=== PATIENT | female | born 1995 | race Hispanic/Latino ===

== ENCOUNTER 2020-11-24 15:40 | Emergency (ER) | payer SELFPAY ==
[2020-11-24] MEDS ORDERED: LIDOCAINE 1% 20 ML MDV ONE (16:33)
[2020-11-24] MEDS ORDERED: TETANUS & DIPHTHERIA TOX,ADULT 0.5 ML VIAL ONE (16:33)
--- NOTE | 2020-11-24 16:49 | RAD REPORT ---
EXAM DESCRIPTION: RAD - Foot Left 3 View - 11/24/2020 4:26 pm CLINICAL HISTORY: fb Pain and swelling COMPARISON: No comparisons FINDINGS: A fishhook is seen in the soft tissues of the medial forefoot. No underlying fracture seen .
--- NOTE | 2020-11-24 16:56 | ER ---
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 Hook embedded in L foot, no active bleeding. Coronavirus screen: Client denies travel out of the [place] in the last 14 days. At this time, the client does not indicate any symptoms associated with coronavirus-19. Ebola Screen: Patient denies travel to an Ebola-affected area in the 21 days before illness onset. Initial Sepsis Screen: Does the patient meet any 2 criteria? No. Patient's initial sepsis screen is negative. Does the patient have a suspected source of infection? Yes: Skin breakdown/wound. Risk Assessment: Do you want to hurt yourself or someone else? Patient reports no desire to harm self or others. Onset of symptoms was November 24, 2020. 15:57 Method Of Arrival: Wheelchair ll1 15:57 Acuity: FRANCESCO 4 ll1 Triage Assessment: 16:30 General: Appears in no apparent distress. comfortable, Behavior is calm, cooperative. ae4 DIETARY DIRECTOR: 19:36 LMP 11/12/2020 ae4 Historical: - Allergies: 15:57 No Known Allergies; ll1 - PMHx: 15:57 None; ll1 - PSHx: 15:57 ACL repair; ll1 - Immunization history:: Client reports having NOT received the Covid vaccine. Last tetanus immunization: unknown, Flu vaccine is up to date. - Social history:: Smoking status: Patient denies any tobacco usage or history of. Screenin:36 Abuse screen: Denies threats or abuse. Nutritional screening: No deficits noted. ae4 Tuberculosis screening: No symptoms or risk factors identified. Fall Risk None identified. Assessment: 16:19 Reassessment: water technician at bedside. ae4 16:30 General: Appears in no apparent distress. comfortable, slender, Behavior is calm, ae4 cooperative. Pain: Complains of pain in ball of right foot. Neuro: Level of Consciousness is awake, alert, obeys commands, Oriented to person, place, time, situation, Appropriate for age. Cardiovascular: Patient's skin is warm and dry. Respiratory: Airway is patent Respiratory effort is even, unlabored, Respiratory pattern is regular, symmetrical. GI: No signs and/or symptoms were reported involving the gastrointestinal system. : No signs and/or symptoms were reported regarding the genitourinary system. EENT: No signs and/or symptoms were reported regarding the EENT system. Derm: Wound noted Other: fishing hook puncturing plantar surface of right foot. Musculoskeletal: No signs and/or symptoms reported regarding the musculoskeletal system. No swelling or bleeding noted. Vital Signs: 15:57 BP 109 / 81; Pulse 71; Resp 16; Temp 97.1; Pulse Ox 99% ; Weight 54.43 kg; Height 5 ft. ll1 0 in. (152.40 cm); Pain 2/10; 15:57 Body Mass Index 23.44 (54.43 kg, 152.40 cm) ll1 ED Course: 15:42 Patient arrived in ED. as 15:51 Laurie Aragon FNP-C is PHCP. kb 15:51 Lazarus Shahid MD is Attending Physician. kb 15:56 Arm band placed on Patient placed in an exam room, on a stretcher. ll1 15:59 Triage completed. ll1 16:10 Spencer Zimmerman, LIAD is Primary Nurse. ae4 16:26 Foot Left 3 View XRAY In Process Unspecified. EDMS 16:30 Placed in gown. Bed in low position. Call light in reach. Side rails up X 1. Pulse ox ae4 on. Warm blanket given. 19:37 No provider procedures requiring assistance completed. Patient did not have IV access ae4 during this emergency room visit. Administered Medications: 16:18 Drug: Tetanus-Diphtheria Toxoid Adult 0.5 ml {Industrial Locomotive Operator: [employer]. Exp: ae4 08/16/2022. Lot #: [id number]. } Route: IM; Site: right deltoid; 17:25 Follow up: Response: No adverse reaction ae4 16:45 Drug: Lidocaine (1 %) 1 vials {Note: Administered by Laurie Riley NP to affected area..} ae4 Volume: 20 ml; Route: Infiltration; 17:34 Drug: Doxycycline 100 mg Route: PO; ae4 17:38 Follow up: Response: Medication administered at discharge. ae4 Outcome: 16:55 Discharge ordered by . milagros 17:40 Patient left the ED. ae4 19:37 Discharged to home ambulatory, with family. ae4 19:37 Condition: stable 19:37 Discharge instructions given to patient, Instructed on discharge instructions, follow up and referral plans. Demonstrated understanding of instructions, follow-up care, Prescriptions given X 1. Signatures: Dispatcher [employer] EDLaurie Stark, STUDENT DRIVING INSTRUCTOR-C PAZ-Julee Mays Andrea, RN RN ae4 Nico Danielson, RN RN ll1
--- NOTE | 2020-11-24 16:56 | EDPHYS ---
Physician Documentation [facility] Name: Kimberly Lynch Age: 25 yrs Sex: Female : 1995 Arrival Date: 11/24/2020 Time: 15:42 Bed 24 Private MD: ED Physician Lazarus Shahid HPI: 11/24 16:52 This 25 yrs old Female presents to ER via Wheelchair with complaints of kb Foreign Body - fish hook in l foot. 16:52 The patient or guardian reports the patient has a suspected foreign body, of the medial kb aspect of left foot. The reported likely foreign body is a fishhook. Onset: The symptoms/episode began/occurred just prior to arrival. Current symptoms: foreign body sensation. Treatment Prior to Arrival: none. The patient has not experienced similar symptoms in the past. The patient has not recently seen a physician. Pt was swimming at the beach and swam into some fishing line, then felt the hook go into her foot. MILL HELPER: 19:36 LMP 11/12/2020 ae4 Historical: - Allergies: 15:57 No Known Allergies; ll1 - PMHx: 15:57 None; ll1 - PSHx: 15:57 ACL repair; ll1 - Immunization history:: Client reports having NOT received the Covid vaccine. Last tetanus immunization: unknown, Flu vaccine is up to date. - Social history:: Smoking status: Patient denies any tobacco usage or history of. ROS: 16:50 Constitutional: Negative for fever, chills, and weight loss, MS/Extremity: Negative for kb injury and deformity, Neuro: Negative for headache, weakness, numbness, tingling, and seizure. 16:50 Skin: Positive for puncture, of the medial aspect left foot. Exam: 16:50 Constitutional: This is a well developed, well nourished patient who is awake, alert, kb and in no acute distress. Head/Face: Normocephalic, atraumatic. ENT: Moist Mucous membranes Respiratory: Respirations even and unlabored. No increased work of breathing, no retractions or nasal flaring. MS/ Extremity: Pulses equal, no cyanosis. Neurovascular intact. Full, normal range of motion. Neuro: Awake and alert, GCS 15, oriented to person, place, time, and situation. Moves all extremities. Normal gait. Psych: Awake, alert, with orientation to person, place and time. Behavior, mood, and affect are within normal limits. 16:50 Skin: injury, puncture(s), that are superficial, of the medial aspect left foot. Vital Signs: 15:57 BP 109 / 81; Pulse 71; Resp 16; Temp 97.1; Pulse Ox 99% ; Weight 54.43 kg; Height 5 ft. ll1 0 in. (152.40 cm); Pain 2/10; 15:57 Body Mass Index 23.44 (54.43 kg, 152.40 cm) ll1 Procedures: 16:54 Foreign Body Removal: a fishhook, from the left medial aspect of left foot, by injected kb lidocaine and pulled out. Dressing: bandaid, The patient tolerated the removal well. MDM: 15:51 Patient medically screened. kb 16:52 Data reviewed: vital signs, nurses notes. Data interpreted: Pulse oximetry: on room air kb is 99 %. Interpretation: normal. Counseling: I had a detailed discussion with the patient and/or guardian regarding: the historical points, exam findings, and any diagnostic results supporting the discharge/admit diagnosis, radiology results, the need for outpatient follow up, a family practitioner, to return to the emergency department if symptoms worsen or persist or if there are any questions or concerns that arise at home. 11/24 15:57 Order name: Foot Left 3 View XRAY; Complete Time: 16:50 kb 11/24 16:49 Order name: Wound Care: clean and dress; Complete Time: 17:34 kb Administered Medications: 16:18 Drug: Tetanus-Diphtheria Toxoid Adult 0.5 ml {Pediatrics Hospitalist: [employer]. Exp: ae4 08/16/2022. Lot #: [id number]. } Route: IM; Site: right deltoid; 17:25 Follow up: Response: No adverse reaction ae4 16:45 Drug: Lidocaine (1 %) 1 vials {Note: Administered by Laurie Riley NP to affected area..} ae4 Volume: 20 ml; Route: Infiltration; 17:34 Drug: Doxycycline 100 mg Route: PO; ae4 17:38 Follow up: Response: Medication administered at discharge. ae4 Disposition: 18:10 Co-signature as Attending Physician, Lazarus Shahid MD. rn Disposition: 11/24/20 16:55 Discharged to Home. Impression: Puncture wound with foreign body of foot. - Condition is Stable. - Discharge Instructions: Puncture Wound, [id number]. - Prescriptions for Doxycycline Hyclate 100 mg Oral Tablet - take 1 tablet by ORAL route every 12 hours; 20 tablet. - Medication Reconciliation Form, Thank You Letter, Antibiotic Education, Prescription Opioid Use form. - Follow up: Emergency Department; When: As needed; Reason: Worsening of condition. Follow up: Private Physician; When: 2 - 3 days; Reason: Recheck today's complaints, Continuance of care, Re-evaluation by your physician. Signatures: Dispatcher [employer] EDMS Laurie Aragon, CAR DUMPER OPERATOR HELPER-C CAR DUMPER OPERATOR HELPER-Ckb Lazarus Shahid MD MD rn Elliott, Andrea RN RN ae4 Nico Danielson RN RN ll1 Corrections: (The following items were deleted from the chart) 17:40 16:55 11/24/2020 16:55 Discharged to Home. Impression: Puncture wound with foreign body ae4 of foot. Condition is Stable. Forms are Medication Reconciliation Form, Thank You Letter, Antibiotic Education, Prescription Opioid Use. Follow up: Emergency Department; When: As needed; Reason: Worsening of condition. Follow up: Private Physician; When: 2 - 3 days; Reason: Recheck today's complaints, Continuance of care, Re-evaluation by your physician. kb
[2020-11-24 17:45] VITALS: BP 109/81; TEMP 97.1; O2SAT 99
[2020-11-24] MEDS ORDERED: DOXYCYCLINE 100 MG CAP PO ONE (17:48)
== END 2020-11-24 17:40 | disposition home or self-care (01) ==
LOC: ER 15:40
DX: S91.342A Puncture wound with foreign body, left foot, initial encounter (principal); Z23 Encounter for immunization
CPT/HCPCS: 90471; 90714; 99284